=== PATIENT | male | born 1960 | race African-American/Black ===

== ENCOUNTER 2022-12-12 13:06 | Emergency (ER) | payer BC ==
[~2022-12-12] VITALS: Ht 177.8 cm; Wt 70.0 kg
[2022-12-12 13:08] VITALS: BP 121/83; PULSE 112; RESP 16; TEMP 98.3; O2SAT 97
== END 2022-12-12 17:04 | disposition left against medical advice (07) ==
LOC: ER 13:27
DX: R07.89 Other chest pain (principal); I10 Essential (primary) hypertension
CPT/HCPCS: 93005; 99283